=== PATIENT | male | born 1960 | race Caucasian/White ===

== ENCOUNTER 2020-02-25 18:09 | Emergency (ER) | payer MEDICARE, MEDICAID ==
--- NOTE | 2020-02-25 18:19 | EDM.PDOC ---
ED HPI GENERAL MEDICAL PROBLEM - General Chief Complaint: Neurological Problem Stated Complaint: MED VIA NORTH Time Seen by Provider: 02/25/20 18:10 Source of Information: Reports: EMS History Limitations: Reports: Altered Mental Status - History of Present Illness INITIAL COMMENTS - FREE TEXT/NARRATIVE: 59-year-old male who resides in a [facility] has a long history of seizure disorder, tends to have breakthrough seizures at times followed by prolonged periods of postictal states. He was more agitated than usual earlier today, was given some medication and this was followed by what appeared to be a significant "absence seizure" and now is been decreased responsive for the past hour. EMS arrived to pick him up and usually takes him to [place], but he was so unresponsive that they felt he should be taken to the nearest facility. Initially he was not even responding to pain. He now seems to be coming around , appears to be trying to talk and withdraws from pain and localizes to voice. He is unable to give us any history. Onset: Sudden (Over the last 2 hours) Associated Symptoms: Denies: Nausea/Vomiting - Related Data Allergies Allergy/AdvReac Type Severity Reaction Status Date / Time bee venom protein (honey bee) Allergy Anaphylactic Verified 02/25/20 18:12 Shock codeine Allergy Hives Verified 02/25/20 18:12 haloperidol Allergy Seizure Verified 02/25/20 18:12 latex Allergy Swelling Verified 02/25/20 18:12 Home Meds: Home Meds Aspirin 81 mg PO DAILY 02/25/20 [History] Benztropine [Cogentin] 2 mg PO BID 02/25/20 [History] Cholecalciferol (Vitamin D3) [Vitamin D3] 2,000 unit PO BEDTIME 02/25/20 [ History] Clopidogrel [Plavix] 75 mg PO DAILY 02/25/20 [History] Divalproex Sodium [Divalproex Sodium ER] 500 mg PO BID 02/25/20 [History] FLUoxetine [PROzac] 40 mg PO DAILY 02/25/20 [History] Fluticasone/Vilanterol [Breo Ellipta 100-25 MCG Inhalation Kit] 1 each IH DAILY 02/25/20 [History] Furosemide [Lasix] 20 mg PO DAILY 02/25/20 [History] Gabapentin [Neurontin] 100 mg PO TID 02/25/20 [History] Glimepiride 4 mg PO WITHBREAKFAST 02/25/20 [History] Ibuprofen [Ibu] 800 mg PO TID 02/25/20 [History] Insulin Glargine,Hum.Rec.Anlog [Lantus Solostar] 12 units SUBCUT DAILY 02/25/20 [History] Lactulose [Cephulac] 45 gm PO DAILY 02/25/20 [History] Levothyroxine 75 mcg PO ACBREAKFAST 02/25/20 [History] Magnesium 400 mg PO BID 02/25/20 [History] Multivitamin [Multi-Vitamin Daily] 1 tab PO DAILY 02/25/20 [History] OLANZapine [Olanzapine] 10 mg PO TID PRN 02/25/20 [History] Omeprazole 20 mg PO DAILY 02/25/20 [History] Propranolol [Propranolol CR 24 Hr] 120 mg PO DAILY 02/25/20 [History] QUEtiapine [SEROquel] 400 mg PO BEDTIME 02/25/20 [History] atorvaSTATin [Lipitor] 80 mg PO BEDTIME 02/25/20 [History] cloZAPine 300 mg PO DAILY 02/25/20 [History] cloZAPine [Clozapine] 500 mg PO BEDTIME 02/25/20 [History] gemfibroziL [Gemfibrozil] 600 mg PO BID 02/25/20 [History] metFORMIN [Glucophage XR] 500 mg PO BIDMEALS 02/25/20 [History] traZODone 400 mg PO BEDTIME 02/25/20 [History] ED ROS GENERAL - Review of Systems Review Of Systems: See Below Reason Not Obtained: Patient was unresponsive on arrival, unable to obtain review Constitutional: Denies: Weakness ED EXAM, NEURO - Physical Exam Exam: See Below Exam Limited By: Altered Mental Status General Appearance: Lethargic Eye Exam: Bilateral Eye: EOMI Throat/Mouth: Normal Inspection, Other (No evidence of oral injury) Head Exam: Atraumatic Respiratory/Chest: No Respiratory Distress, Lungs Clear Cardiovascular: Regular Rate, Rhythm Neurological: Withdraws to Pain, Other (Also responding to voice, markedly improved after returning from CT scan and starting to attempt to answer questions) Extremities: Normal Inspection Psychiatric: Depressed Mood, Flat Affect Skin Exam: Warm, Dry Course - Vital Signs Last Recorded V/S: Last Vital Signs Temp 96.4 F L 02/25/20 18:30 Pulse 75 02/25/20 19:10 Resp 25 H 02/25/20 19:10 BP 136/76 02/25/20 19:10 Pulse Ox 94 L 02/25/20 19:10 - Orders/Labs/Meds Labs: Laboratory Tests 02/25/20 02/25/20 02/25/20 Range/Units 18:55 18:55 19:32 WBC 7.4 (4.5-11.0) K/uL RBC 4.44 (4.30-5.90) M/uL Hgb 13.3 (12.0-15.0) g/dL Hct 39.8 L (40.0-54.0) % MCV 90 (80-98) fL MCH 30 (27-31) pg MCHC 33 (32-36) % Plt Count 231 (150-400) K/uL Neut % (Auto) 54 (36-66) % Lymph % (Auto) 32 (24-44) % [place] % (Auto) 11 H (2-6) % Eos % (Auto) 3 (2-4) % Baso % (Auto) 1 (0-1) % Sodium 135 L (140-148) mmol/L Potassium 4.5 (3.6-5.2) mmol/L Chloride 97 L (100-108) mmol/L Carbon Dioxide 29 (21-32) mmol/L Anion Gap 13.5 (5.0-14.0) mmol/L BUN 14 (7-18) mg/dL Creatinine 0.9 (0.8-1.3) mg/dL Est Cr Clr Drug Dosing 78.77 mL/min Estimated GFR (MDRD) > 60 (>60) Glucose 75 (74-106) mg/dL Calcium 8.9 (8.5-10.1) mg/dL Magnesium 1.8 (1.8-2.4) mg/dL Total Bilirubin 0.2 (0.2-1.0) mg/dL AST 22 (15-37) U/L ALT 37 (12-78) U/L Alkaline Phosphatase 61 (46-116) U/L Total Protein 6.9 (6.4-8.2) g/dL Albumin 3.6 (3.4-5.0) g/dL Globulin 3.3 (2.3-3.5) g/dL Albumin/Globulin Ratio 1.1 L (1.2-2.2) Valproic Acid 51.6 (50.0-100.0) ug/mL - Re-Assessments/Exams Free Text/Narrative Re-Assessment/Exam: 02/25/20 19:[address] returned normal, CBC and CMP as well as magnesium were obtained. By the time the labs returned which were all normal, the patient was answering questions and cooperating. I did add a valproic acid level which will be available in 2 days. No need for hospitalization, and the [facility] health care provider agreed to take him back so transportation will be arranged. 02/25/20 20:02 Valproic acid level returned 51, therapeutic is between 50 and 100. There is certainly room for increasing the dose. I would suggest discussing this with his neurologist or primary care and consider increasing his daily dose. 02/25/20 22:25 Patient was back to his baseline by discharge. Departure - Departure Time of Disposition: 20:39 Disposition: DC/[facility] to [facility] Condition: Good Clinical Impression: Seizure disorder - Discharge Information Instructions: Seizure, Adult, [id number] Referrals: PCP,None [Primary Care Provider] - Forms: ED Department Discharge Care Plan Goals: Resume regular medications. Call neurologist or primary provider to consider increasing valproic acid as his level is 51, with therapeutic being 50-100. Sepsis Event Note - Focused Exam Vital Signs: Vital Signs Temp Pulse Resp BP Pulse Ox 02/25/20 19:10 75 25 H 136/76 94 L 02/25/20 18:45 75 25 H 126/72 92 L 02/25/20 18:30 96.4 F L 79 25 H 125/66 92 L 02/25/20 18:25 72 121/71 02/25/20 18:12 96.4 F L 79 25 H 125/66 92 L Date Exam was Performed: 02/25/20 Time Exam was Performed: 22:26
--- NOTE | 2020-02-25 18:48 | CRLCT ---
INDICATION: Seizure, unresponsive TECHNIQUE: Head CT without contrast. COMPARISON: None FINDINGS: CSF spaces: Within normal limits for age. Brain parenchyma: There are nonspecific low attenuation white matter changes consistent with chronic microvascular disease. No sign of mass, hemorrhage, or midline shift. Skull base and calvarium: The visualized paranasal sinuses and mastoid air cells demonstrate no acute or significant findings. The visualized orbits are grossly unremarkable. No skull fractures. There is intracranial atherosclerosis. IMPRESSION: 1. No acute findings. 2. Nonspecific white matter disease, typical of chronic microvascular disease. Please note that all CT scans at this facility use dose modulation, iterative reconstruction, and/or weight-based dosing when appropriate to reduce radiation dose to as low as reasonably achievable. Dictated by Martha Ferraro MD @ Feb 25 2020 6:47PM Signed by Dr. Martha Ferraro @ Feb 25 2020 6:47PM
== END 2020-02-25 20:39 ==
LOC: JP.ED 18:09
DX: G40.909 Epilepsy, unspecified, not intractable, without status epilepticus (principal); Z91.030 Bee allergy status; Z91.040 Latex allergy status; Z88.5 Allergy status to narcotic agent; Z88.8 Allergy status to other drugs, medicaments and biological substances; Z79.82 Long term (current) use of aspirin; Z79.02 Long term (current) use of antithrombotics/antiplatelets; Z79.899 Other long term (current) drug therapy
CPT/HCPCS: 36415; 70450; 80053; 80164; 83735; 85025; 99284; 99285-25

== ENCOUNTER 2020-03-07 02:52 | Emergency (ER) | payer MEDICARE, MEDICAID ==
--- NOTE | 2020-03-07 03:06 | EDM.PDOC ---
ED HPI GENERAL MEDICAL PROBLEM - General Chief Complaint: General Stated Complaint: MEDICAL VIA NORTH Time Seen by Provider: 03/07/20 02:55 Source of Information: Reports: Patient, EMS History Limitations: Reports: Other (Mild to moderate postictal state, some confusion) - History of Present Illness INITIAL COMMENTS - FREE TEXT/NARRATIVE: 59-year-old male with a known chronic seizure disorder, who was just evaluated a week and a half ago with a seizure and he has Depakote was increased. Tonight he had another seizure and wanted to be evaluated. His postictal state was not as prolonged tonight, but he is unaware of having his medication level rechecked since increasing his dose. He does not have any damage to his tongue or incontinence. His only complaint is that he has been having muscle cramps in his lower extremities over the past 2 weeks. Onset: Sudden Duration: Hour(s): (About an hour ago) Associated Symptoms: Reports: Confusion - Related Data Allergies Allergy/AdvReac Type Severity Reaction Status Date / Time bee venom protein (honey bee) Allergy Anaphylactic Verified 03/07/20 03:26 Shock codeine Allergy Hives Verified 03/07/20 03:26 haloperidol Allergy Seizure Verified 03/07/20 03:26 latex Allergy Swelling Verified 03/07/20 03:26 Home Meds: Home Meds Aspirin 81 mg PO DAILY 02/25/20 [History] Benztropine [Cogentin] 2 mg PO BID 02/25/20 [History] Cholecalciferol (Vitamin D3) [Vitamin D3] 2,000 unit PO BEDTIME 02/25/20 [ History] Clopidogrel [Plavix] 75 mg PO DAILY 02/25/20 [History] Divalproex Sodium [Divalproex Sodium ER] 500 mg PO BID 02/25/20 [History] FLUoxetine [PROzac] 40 mg PO DAILY 02/25/20 [History] Fluticasone/Vilanterol [Breo Ellipta 100-25 MCG Inhalation Kit] 1 each IH DAILY 02/25/20 [History] Furosemide [Lasix] 20 mg PO DAILY 02/25/20 [History] Gabapentin [Neurontin] 100 mg PO TID 02/25/20 [History] Glimepiride 4 mg PO WITHBREAKFAST 02/25/20 [History] Ibuprofen [Ibu] 800 mg PO TID 02/25/20 [History] Insulin Glargine,Hum.Rec.Anlog [Lantus Solostar] 12 units SUBCUT DAILY 02/25/20 [History] Lactulose [Cephulac] 45 gm PO DAILY 02/25/20 [History] Levothyroxine 75 mcg PO ACBREAKFAST 02/25/20 [History] Magnesium 400 mg PO BID 02/25/20 [History] Multivitamin [Multi-Vitamin Daily] 1 tab PO DAILY 02/25/20 [History] OLANZapine [Olanzapine] 10 mg PO TID PRN 02/25/20 [History] Omeprazole 20 mg PO DAILY 02/25/20 [History] Propranolol [Propranolol CR 24 Hr] 120 mg PO DAILY 02/25/20 [History] QUEtiapine [SEROquel] 400 mg PO BEDTIME 02/25/20 [History] atorvaSTATin [Lipitor] 80 mg PO BEDTIME 02/25/20 [History] cloZAPine 300 mg PO DAILY 02/25/20 [History] cloZAPine [Clozapine] 500 mg PO BEDTIME 02/25/20 [History] gemfibroziL [Gemfibrozil] 600 mg PO BID 02/25/20 [History] metFORMIN [Glucophage XR] 500 mg PO BIDMEALS 02/25/20 [History] traZODone 400 mg PO BEDTIME 02/25/20 [History] Divalproex Sodium 250 mg PO BID 03/07/20 [History] Past Medical History Respiratory History: Reports: COPD Gastrointestinal History: Reports: Other (See Below) Other Gastrointestinal History: hepatic encephalopathy, alcohol dependence in remission Musculoskeletal History: Reports: Other (See Below) Other Musculoskeletal History: multiple sclerosis, chronic pain sydrome Neurological History: Reports: Seizure Psychiatric History: Reports: Anxiety, Depression, Psychosis, Schizophrenia, Other (See Below) Other Psychiatric History: schizoaffective disorder Endocrine/Metabolic History: Reports: Hypothyroidism ED ROS GENERAL - Review of Systems Review Of Systems: See Below Constitutional: Denies: Fever, Chills HEENT: Denies: Vision Change Respiratory: Denies: Shortness of Breath Cardiovascular: Denies: Chest Pain GI/Abdominal: Denies: Abdominal Pain, Nausea, Vomiting Musculoskeletal: Reports: Muscle Pain (Cramps in his lower extremities) Skin: Reports: No Symptoms Neurological: Denies: Headache ED EXAM, GENERAL - Physical Exam Exam: See Below Exam Limited By: No Limitations General Appearance: Alert, No Apparent Distress Eye Exam: Bilateral Eye: EOMI, PERRL Throat/Mouth: Normal Inspection Head: Atraumatic Respiratory/Chest: No Respiratory Distress, Lungs Clear Cardiovascular: Regular Rate, Rhythm GI/Abdominal: Soft, Non-Tender Extremities: Normal Inspection. No: Pedal Edema Neurological: Alert, Other (Patient has slow responses to questioning but it is accurate and he is oriented) Psychiatric: Flat Affect Skin Exam: Warm, Dry Course - Vital Signs Last Recorded V/S: Last Vital Signs Temp 96.5 F L 03/07/20 03:18 Pulse 72 03/07/20 03:52 Resp 18 03/07/20 03:18 BP 144/57 H 03/07/20 03:52 Pulse Ox 92 L 03/07/20 03:18 - Orders/Labs/Meds Labs: Laboratory Tests 03/07/20 Range/Units 03:10 Sodium 138 L (140-148) mmol/L Potassium 4.3 (3.6-5.2) mmol/L Chloride 100 (100-108) mmol/L Carbon Dioxide 32 (21-32) mmol/L Anion Gap 10.3 (5.0-14.0) mmol/L BUN 6 L D (7-18) mg/dL Creatinine 0.8 (0.8-1.3) mg/dL Est Cr Clr Drug Dosing TNP Estimated GFR (MDRD) > 60 (>60) Glucose 67 L (74-106) mg/dL Calcium 8.7 (8.5-10.1) mg/dL Valproic Acid 52.3 (50.0-100.0) ug/mL Meds: Medications Discontinued Medications Generic Name Dose Route Start Last Admin Trade Name Freq PRN Reason Stop Dose Admin Sodium Chloride 500 mls @ 1,000 mls/hr 03/07/20 03:30 03/07/20 03:25 Normal Saline IV 1,000 mls/hr ASDIRECTED [facility] Administration - Re-Assessments/Exams Free Text/Narrative Re-Assessment/Exam: 03/07/20 03:09 Patient will be given a 500 cc bolus of normal saline, and his valproic acid and BMP will be checked. 03/07/20 03:33 Patient remained stable, valproic acid is now 52.3. There is more room for increasing the dose of his medication. BMP is normal. 03/07/20 03:35 The increase on his valproic acid was just 2 days ago so he should continue with the increased dose. Departure - Departure Time of Disposition: 04:22 Disposition: Home, Self-Care 01 Clinical Impression: Seizure disorder - Discharge Information Instructions: Valproic Acid, Divalproex Sodium delayed release capsules, Seizure, Adult, [id number] Referrals: PCP,None [Primary Care Provider] - Forms: ED Department Discharge Care Plan Goals: Continue with increased valproic acid doses as recently changed 2 days ago. Consider monitoring after a seizure and if he returns to baseline no further work-up is necessary unless seizures are persistent after the increased dosage over the course of 1 to 2 weeks. Sepsis Event Note - Focused Exam Date Exam was Performed: 03/07/20 Time Exam was Performed: 17:29
[2020-03-07] MEDS ORDERED: Sodium Chloride 0.9% 500 ML IV SCH ×2 (03:15→03:30)
== END 2020-03-07 05:01 | disposition home or self-care (01) ==
LOC: JP.ED 02:52
DX: G40.909 Epilepsy, unspecified, not intractable, without status epilepticus (principal); J44.9 Chronic obstructive pulmonary disease, unspecified; G35 Multiple sclerosis; F41.9 Anxiety disorder, unspecified; F32.9 Major depressive disorder, single episode, unspecified; E03.9 Hypothyroidism, unspecified; Z91.030 Bee allergy status; Z88.5 Allergy status to narcotic agent; Z88.8 Allergy status to other drugs, medicaments and biological substances; Z91.040 Latex allergy status; Z79.82 Long term (current) use of aspirin; Z79.02 Long term (current) use of antithrombotics/antiplatelets; Z79.4 Long term (current) use of insulin; Z79.899 Other long term (current) drug therapy
CPT/HCPCS: 36415; 80048; 80164; 96360; 99283; 99284-25; J7030

== ENCOUNTER 2021-02-09 19:36 | Emergency (ER) | payer MEDICARE, MEDICAID ==
--- NOTE | 2021-02-09 19:45 | EDM.PDOC ---
ED HPI GENERAL MEDICAL PROBLEM - General Chief Complaint: Head Injury Stated Complaint: MEDICAL VIA NOR[facility] Time Seen by Provider: 02/09/21 19:40 Source of Information: Reports: EMS, Old Records. Denies: Patient History Limitations: Reports: Altered Mental Status - History of Present Illness INITIAL COMMENTS - FREE TEXT/NARRATIVE: 60 yo male arrives via EMS after Dereck was sitting on a toilet attempting a BM when he passed out and fell off the toilet. There were no complaints leading up to this fall. EMS transported with stable vitals, but limited alertness. No head bumps noted. His only anticoagulant is ASA. Lives at an assisted living facility. Onset: Today, Sudden Onset Date: 02/09/21 Duration: Minutes: Location: Reports: Head (?) Quality: Reports: Other (unclear) Severity: Moderate Improves with: Reports: None Worsens with: Reports: None Context: Reports: Other (See HPI) Associated Symptoms: Reports: Syncope, Other (altered LOC) Treatments STUDENT SUCCESS COACH: Reports: Other (see below) (none) Left Head Pain Score (Numeric/FACES): 3 - Related Data Allergies Allergy/AdvReac Type Severity Reaction Status Date / Time bee venom protein (honey bee) Allergy Anaphylactic Verified 03/07/20 03:26 Shock codeine Allergy Hives Verified 03/07/20 03:26 haloperidol Allergy Seizure Verified 03/07/20 03:26 latex Allergy Swelling Verified 03/07/20 03:26 Home Meds: Home Meds Aspirin 81 mg PO DAILY 02/25/20 [History] Benztropine [Cogentin] 2 mg PO BID 02/25/20 [History] Cholecalciferol (Vitamin D3) [Vitamin D3] 2,000 unit PO BEDTIME 02/25/20 [History] Clopidogrel [Plavix] 75 mg PO DAILY 02/25/20 [History] Divalproex Sodium [Divalproex Sodium ER] 500 mg PO BID 02/25/20 [History] FLUoxetine [PROzac] 40 mg PO DAILY 02/25/20 [History] Fluticasone/Vilanterol [Breo Ellipta 100-25 MCG Inhalation Kit] 1 each IH DAILY 02/25/20 [History] Furosemide [Lasix] 20 mg PO DAILY 02/25/20 [History] Gabapentin [Neurontin] 100 mg PO TID 02/25/20 [History] Glimepiride 4 mg PO WITHBREAKFAST 02/25/20 [History] Ibuprofen [Ibu] 800 mg PO TID 02/25/20 [History] Insulin Glargine,Hum.Rec.Anlog [Lantus Solostar] 12 units SUBCUT DAILY 02/25/20 [History] Lactulose [Cephulac] 45 gm PO DAILY 02/25/20 [History] Levothyroxine 75 mcg PO ACBREAKFAST 02/25/20 [History] Magnesium 400 mg PO BID 02/25/20 [History] Multivitamin [Multi-Vitamin Daily] 1 tab PO DAILY 02/25/20 [History] OLANZapine [Olanzapine] 10 mg PO TID PRN 02/25/20 [History] Omeprazole 20 mg PO DAILY 02/25/20 [History] Propranolol [Propranolol CR 24 Hr] 120 mg PO DAILY 02/25/20 [History] QUEtiapine [SEROquel] 400 mg PO BEDTIME 02/25/20 [History] atorvaSTATin [Lipitor] 80 mg PO BEDTIME 02/25/20 [History] cloZAPine 300 mg PO DAILY 02/25/20 [History] cloZAPine [Clozapine] 500 mg PO BEDTIME 02/25/20 [History] gemfibroziL [Gemfibrozil] 600 mg PO BID 02/25/20 [History] metFORMIN [Glucophage XR] 500 mg PO BIDMEALS 02/25/20 [History] traZODone 400 mg PO BEDTIME 02/25/20 [History] Divalproex Sodium 250 mg PO BID 03/07/20 [History] Past Medical History Respiratory History: Reports: COPD Gastrointestinal History: Reports: Other (See Below) Other Gastrointestinal History: hepatic encephalopathy, alcohol dependence in remission Musculoskeletal History: Reports: Other (See Below) Other Musculoskeletal History: multiple sclerosis, chronic pain sydrome Neurological History: Reports: Seizure Psychiatric History: Reports: Anxiety, Depression, Psychosis, Schizophrenia, Other (See Below) Other Psychiatric History: schizoaffective disorder Endocrine/Metabolic History: Reports: Hypothyroidism - Infectious Disease History Infectious Disease History: Reports: Chicken Pox Social & Family History - Family History Family Medical History: No Pertinent Family History - Caffeine Use Caffeine Use: Reports: Coffee ED ROS GENERAL - Review of Systems Review Of Systems: Unable To Obtain (due to decreased LOC) Reason Not Obtained: decreased LOC Constitutional: Reports: Other (altered LOC) ED EXAM, HEAD INJURY - Physical Exam Exam: See Below Exam Limited By: No Limitations General Appearance: WD/WN, Obtunded Head: Atraumatic, Normocephalic Eyes: Bilateral Eye: Normal Inspection, PERRL Ears: Normal External Exam, Normal Canal, Normal TMs Nose: Normal Inspection, No Blood Throat/Mouth: Normal Lips, Normal Oropharynx, No Airway Compromise, Other (dry tongue) Neck: Normal Inspection Respiratory: No Respiratory Distress, Lungs Clear, Normal Breath Sounds, No Accessory Muscle Use Cardiovascular: Regular Rate, Rhythm, No Edema GI/Abdominal Exam: Soft, Non-Tender, No Distention, Abnormal Bowel Sounds (incr eased) Extremities: Normal Inspection, Normal Range of Motion, No Pedal Edema Neurologic: Other (all extrems flaccid) Skin: Normal Color, Warm/Dry - Luis Coma Score Best Eye Response (Luis): (1) No Response Best Verbal Response (Luis): (1) No Verbal Response Best Motor Response ([place]): (1) No Motor Response [place] Total: 3 ( a few minutes later is interacting with nursing. ) Course - Vital Signs Last Recorded V/S: Last Vital Signs Temp 36.6 C 02/09/21 19:38 Pulse 91 02/09/21 19:38 Resp 18 02/09/21 19:38 BP 114/64 02/09/21 19:38 Pulse Ox 91 L 02/09/21 19:38 - Orders/Labs/Meds Orders: Active Orders 24 hr Category Date Time Status Cardiac Monitoring [RC] .As Directed Care 02/09/21 19:42 Active Head wo Cont [CT] Stat Exams 02/09/21 19:44 Stop Req Labs: Laboratory Tests 02/09/21 02/09/21 02/09/21 Range/Units 20:09 20:16 20:16 WBC 9.5 (4.5-11.0) K/uL RBC 4.96 (4.30-5.90) M/uL Hgb 11.5 L (12.0-15.0) g/dL Hct 37.2 L (40.0-54.0) % MCV 75 L (80-98) fL MCH 23 L (27-31) pg MCHC 31 L (32-36) % Plt Count 306 (150-400) K/uL Sodium 146 (140-148) mmol/L Potassium 4.5 (3.6-5.2) mmol/L Chloride 104 (100-108) mmol/L Carbon Dioxide 27 (21-32) mmol/L Anion Gap 15.4 H (5.0-14.0) mmol/L BUN 8 (7-18) mg/dL Creatinine 0.7 L (0.8-1.3) mg/dL Est Cr Clr Drug Dosing 121.63 mL/min Estimated GFR (MDRD) > 60 (>60) Glucose 67 L (74-106) mg/dL Calcium 10.5 H D (8.5-10.1) mg/dL Magnesium 2.0 (1.8-2.4) mg/dL Ammonia (11-32) umol/L Troponin I < 0.017 (0.000-0.056) ng/mL Urine Color Yellow (YELLOW) Urine Appearance Clear (CLEAR) Urine pH 6.5 (5.0-8.0) Ur Specific [place] 1.010 (1.008-1.030) Urine Protein Negative (NEGATIVE) mg/dL Urine Glucose (UA) Negative (NEGATIVE) mg/dL Urine Ketones Negative (NEGATIVE) mg/dL Urine Occult Blood Negative (NEGATIVE) Urine Nitrite Negative (NEGATIVE) Urine Bilirubin Negative (NEGATIVE) Urine Urobilinogen 0.2 (0.2-1.0) EU/dL Ur Leukocyte Esterase Negative (NEGATIVE) Urine RBC Not seen (0-5) Urine WBC 0-5 (0-5) Ur Epithelial Cells Rare Amorphous Sediment Rare Urine Bacteria Rare Urine Mucus Not seen 02/09/21 Range/Units 20:16 WBC (4.5-11.0) K/uL RBC (4.30-5.90) M/uL Hgb (12.0-15.0) g/dL Hct (40.0-54.0) % MCV (80-98) fL MCH (27-31) pg MCHC (32-36) % Plt Count (150-400) K/uL Sodium (140-148) mmol/L Potassium (3.6-5.2) mmol/L Chloride (100-108) mmol/L Carbon Dioxide (21-32) mmol/L Anion Gap (5.0-14.0) mmol/L BUN (7-18) mg/dL Creatinine (0.8-1.3) mg/dL Est Cr Clr Drug Dosing mL/min Estimated GFR (MDRD) (>60) Glucose (74-106) mg/dL Calcium (8.5-10.1) mg/dL Magnesium (1.8-2.4) mg/dL Ammonia 16 (11-32) umol/L Troponin I (0.000-0.056) ng/mL Urine Color (YELLOW) Urine Appearance (CLEAR) Urine pH (5.0-8.0) Ur Specific [place] (1.008-1.030) Urine Protein (NEGATIVE) mg/dL Urine Glucose (UA) (NEGATIVE) mg/dL Urine Ketones (NEGATIVE) mg/dL Urine Occult Blood (NEGATIVE) Urine Nitrite (NEGATIVE) Urine Bilirubin (NEGATIVE) Urine Urobilinogen (0.2-1.0) EU/dL Ur Leukocyte Esterase (NEGATIVE) Urine RBC (0-5) Urine WBC (0-5) Ur Epithelial Cells Amorphous Sediment Urine Bacteria Urine Mucus - Radiology Interpretation CT Results Date: 02/09/21 - Re-Assessments/Exams Free Text/Narrative Re-Assessment/Exam: 02/09/21 20:48 Was given applejuice and a snack here in the ER, if more alert now. Departure - Departure Time of Disposition: 21:15 Disposition: Home, Self-Care 01 Condition: Fair Clinical Impression: Hypoglycemia - Discharge Information *PRESCRIPTION DRUG MONITORING PROGRAM REVIEWED*: Not Applicable *COPY OF PRESCRIPTION DRUG MONITORING REPORT IN PATIENT [id number]: Not Applicable Referrals: PCP,None [Primary Care Provider] - Forms: ED Department Discharge Additional Instructions: Watch blood sugars more closely. Contact primary care provider on Thursday morning regarding today's low blood sugar episode(67). Return as needed. Sepsis Event Note (ED) - Evaluation Sepsis Screening Result: No Definite Risk - Focused Exam Vital Signs: Vital Signs Temp Pulse Resp BP Pulse Ox 02/09/21 19:38 36.6 C 91 18 114/64 91 L - My Orders Last 24 Hours: My Active Orders 02/09/21 19:42 Cardiac Monitoring [RC] .As Directed 02/09/21 19:44 Head wo Cont [CT] Stat - Assessment/Plan Last 24 Hours: My Active Orders 02/09/21 19:42 Cardiac Monitoring [RC] .As Directed 02/09/21 19:44 Head wo Cont [CT] Stat
== END 2021-02-09 22:04 | disposition home or self-care (01) ==
LOC: JP.ED 19:36
DX: E16.2 Hypoglycemia, unspecified (principal); J44.9 Chronic obstructive pulmonary disease, unspecified; G35 Multiple sclerosis; E03.9 Hypothyroidism, unspecified; Z91.030 Bee allergy status; Z88.5 Allergy status to narcotic agent; Z88.8 Allergy status to other drugs, medicaments and biological substances; Z91.040 Latex allergy status; Z79.82 Long term (current) use of aspirin; Z79.02 Long term (current) use of antithrombotics/antiplatelets; Z79.4 Long term (current) use of insulin; Z79.899 Other long term (current) drug therapy
CPT/HCPCS: 36415; 80048; 81001; 82140; 82947; 83735; 84484; 85027; 99285-25

== ENCOUNTER 2021-04-05 03:29 | Emergency (ER) | payer MEDICARE, MEDICAID ==
[2021-04-05] MEDS ORDERED: Sodium Chloride 0.9% 10 ML Syringe FLUSH PRN (04:13)
--- NOTE | 2021-04-05 04:20 | EDM.PDOC ---
ED HPI GENERAL MEDICAL PROBLEM - General Chief Complaint: Diabetic Complaint Stated Complaint: LOW BLOOD SUGAR Time Seen by Provider: 04/05/21 04:12 Source of Information: Reports: EMS History Limitations: Reports: Altered Mental Status - History of Present Illness INITIAL COMMENTS - FREE TEXT/NARRATIVE: Dereck is a 60-year-old male presenting to the ED from [facility] in [place], [place] for evaluation of altered mental status. Patient was assessed at 1 AM by the [facility] staff who found him unresponsive. They did a blood glucose and found he was at 60 mg/dL. They in turn called EMS who found him to have a glucose of 50 mg/dL. They were unable to establish an IV but did give the patient 1 mg of glucagon IM. The patient is on a large amount of nighttime medications that would make him quite somnolent including gabapentin, Keppra, and Seroquel to name a few. Nursing staff informs me that when the patient has presented at nighttime he typically is very somnolent because of these medications. It is unclear why nursing staff decided to do a 1 AM check on the patient in [facility]. The patient does have a history of diabetes, schizoaffective schizophrenia, seizure disorder, multiple sclerosis, alcohol dependence, and hypertension. I did receive a phone call from Gwyn, the nurse conference center manager from [facility] who stated that the aids 1 minute 1 AM to toilet the patient and found him unresponsive. They did check a blood sugar which was reported above and because the patient would not respond they called EMS.'s unclear what was responsible for the significant delay between toileting him at 1 AM and him presenting to the ER at 4 AM. The patient was recently taken off BuSpar and lorazepam and started on clonazepam which may be contributing to his increased somnolence. - Related Data Allergies Allergy/AdvReac Type Severity Reaction Status Date / Time bee venom protein (honey bee) Allergy Anaphylactic Verified 04/05/21 03:35 Shock codeine Allergy Hives Verified 04/05/21 03:35 haloperidol Allergy Seizure Verified 04/05/21 03:35 latex Allergy Swelling Verified 04/05/21 03:35 Home Meds: Home Meds Cholecalciferol (Vitamin D3) [Vitamin D3] 2,000 unit PO BEDTIME 02/25/20 [History] FLUoxetine [PROzac] 80 mg PO DAILY 02/25/20 [History] Fluticasone/Vilanterol [Breo Ellipta 100-25 MCG Inhalation Kit] 1 each IH DAILY 02/25/20 [History] Gabapentin [Neurontin] 100 mg PO TID 02/25/20 [History] Glimepiride 4 mg PO WITHBREAKFAST 02/25/20 [History] Lactulose [Cephulac] 45 gm PO TID 02/25/20 [History] Levothyroxine 75 mcg PO ACBREAKFAST 02/25/20 [History] Magnesium 400 mg PO BID 02/25/20 [History] Multivitamin [Multi-Vitamin Daily] 1 tab PO DAILY 02/25/20 [History] OLANZapine [Olanzapine] 10 mg PO TID 02/25/20 [History] Omeprazole 20 mg PO DAILY 02/25/20 [History] QUEtiapine [SEROquel] 400 mg PO BEDTIME 02/25/20 [History] atorvaSTATin [Lipitor] 80 mg PO BEDTIME 02/25/20 [History] cloZAPine 300 mg PO DAILY 02/25/20 [History] cloZAPine [Clozapine] 500 mg PO BEDTIME 02/25/20 [History] gemfibroziL [Gemfibrozil] 600 mg PO BID 02/25/20 [History] metFORMIN [Glucophage XR] 500 mg PO BIDMEALS 02/25/20 [History] traZODone 100 mg PO BEDTIME 02/25/20 [History] Aspirin 1 tab PO DAILY 02/09/21 [History] Benztropine [Cogentin] 1 tab PO BID 02/09/21 [History] Finasteride 1 tab PO DAILY 02/09/21 [History] Propranolol [Inderal] 1 tab PO DAILY 02/09/21 [History] Tolterodine [Detrol] 1 tab PO BEDTIME 02/09/21 [History] levETIRAcetam [Levetiracetam] 1 tab PO BID 02/09/21 [History] clonazePAM [Clonazepam] 1 mg PO BID 04/05/21 [History] Past Medical History HEENT History: Reports: Impaired Vision Respiratory History: Reports: COPD Gastrointestinal History: Reports: Other (See Below) Other Gastrointestinal History: hepatic encephalopathy, alcohol dependence in remission Musculoskeletal History: Reports: Other (See Below) Other Musculoskeletal History: multiple sclerosis, chronic pain sydrome Neurological History: Reports: Seizure Psychiatric History: Reports: Anxiety, Depression, Psychosis, Schizophrenia, Other (See Below) Other Psychiatric History: schizoaffective disorder Endocrine/Metabolic History: Reports: Diabetes, Type I, Hypothyroidism - Infectious Disease History Infectious Disease History: Reports: Chicken Pox Social & Family History - Family History Family Medical History: No Pertinent Family History - Caffeine Use Caffeine Use: Reports: Coffee ED ROS GENERAL - Review of Systems Review Of Systems: Unable To Obtain Reason Not Obtained: Patient is very somnolent and not answering questions. ED EXAM GENERAL NO PERIP PULSE - Physical Exam Exam: See Below Exam Limited By: Altered Mental Status General Appearance: Obtunded Eye Exam: Bilateral Eye: PERRL Throat/Mouth: Normal Inspection, Normal Oropharynx Head: Atraumatic, Normocephalic Respiratory/Chest: No Respiratory Distress, Lungs Clear, Normal Breath Sounds Cardiovascular: Normal Peripheral Pulses, Regular Rate, Rhythm, No Murmur GI/Abdominal: Normal Bowel Sounds, Soft, Non-Tender Extremities: Normal Inspection Neurological: Unresponsive Course - Vital Signs Last Recorded V/S: Last Vital Signs Temp 36.2 C 04/05/21 04:08 Pulse 70 04/05/21 05:10 Resp 19 04/05/21 05:10 BP 123/69 04/05/21 05:10 Pulse Ox 94 L 04/05/21 05:10 - Orders/Labs/Meds Orders: Active Orders 24 hr Category Date Time Status Sodium Chloride 0.9% [Saline Flush] Med 04/05/21 04:13 Active 10 ml FLUSH ASDIRECTED PRN Saline Lock Insert [OM.PC] Routine Oth 04/05/21 04:13 Ordered Medication Orders Sodium Chloride (Sodium Chloride 0.9% 10 Ml Syringe) 10 ml FLUSH ASDIRECTED PRN PRN Reason: Keep Vein Open Last Admin: 04/05/21 04:31 Dose: 10 ml Documented by: JUDI Labs: Laboratory Tests 04/05/21 04/05/21 04/05/21 Range/Units 03:45 03:45 03:45 WBC 6.5 (4.5-11.0) K/uL RBC 4.73 (4.30-5.90) M/uL Hgb 12.1 (12.0-15.0) g/dL Hct 37.8 L (40.0-54.0) % MCV 80 (80-98) fL MCH 26 L (27-31) pg MCHC 32 (32-36) % Plt Count 297 (150-400) K/uL Neut % (Auto) 59.6 (36-66) % Lymph % (Auto) 28.8 (24-44) % [place] % (Auto) 7.7 H (2-6) % Eos % (Auto) 3.1 (2-4) % Baso % (Auto) 0.8 (0-1) % Sodium 142 (140-148) mmol/L Potassium 4.1 (3.6-5.2) mmol/L Chloride 101 (100-108) mmol/L Carbon Dioxide 27 (21-32) mmol/L Anion Gap 13.6 (5.0-14.0) mmol/L BUN 10 (7-18) mg/dL Creatinine 0.8 (0.8-1.3) mg/dL Est Cr Clr Drug Dosing 103.28 mL/min Estimated GFR (MDRD) > 60 (>60) Glucose 151 H (74-106) mg/dL Lactic Acid 1.0 (0.4-2.0) mmol/L Calcium 9.5 (8.5-10.1) mg/dL Total Bilirubin 0.2 (0.2-1.0) mg/dL AST 40 H D (15-37) U/L ALT 43 (12-78) U/L Alkaline Phosphatase 115 D (46-116) U/L Ammonia (11-32) umol/L Total Protein 8.0 (6.4-8.2) g/dL Albumin 3.5 (3.4-5.0) g/dL Globulin 4.5 H (2.3-3.5) g/dL Albumin/Globulin Ratio 0.8 L (1.2-2.2) Urine Color (YELLOW) Urine Appearance (CLEAR) Urine pH (5.0-8.0) Ur Specific [place] (1.008-1.030) Urine Protein (NEGATIVE) mg/dL Urine Glucose (UA) (NEGATIVE) mg/dL Urine Ketones (NEGATIVE) mg/dL Urine Occult Blood (NEGATIVE) Urine Nitrite (NEGATIVE) Urine Bilirubin (NEGATIVE) Urine Urobilinogen (0.2-1.0) EU/dL Ur Leukocyte Esterase (NEGATIVE) Urine RBC (0-5) Urine WBC (0-5) Ur Epithelial Cells Amorphous Sediment Urine Bacteria Urine Mucus Ethyl Alcohol mg/dL 04/05/21 04/05/21 04/05/21 Range/Units 03:45 04:13 04:50 WBC (4.5-11.0) K/uL RBC (4.30-5.90) M/uL Hgb (12.0-15.0) g/dL Hct (40.0-54.0) % MCV (80-98) fL MCH (27-31) pg MCHC (32-36) % Plt Count (150-400) K/uL Neut % (Auto) (36-66) % Lymph % (Auto) (24-44) % [place] % (Auto) (2-6) % Eos % (Auto) (2-4) % Baso % (Auto) (0-1) % Sodium (140-148) mmol/L Potassium (3.6-5.2) mmol/L Chloride (100-108) mmol/L Carbon Dioxide (21-32) mmol/L Anion Gap (5.0-14.0) mmol/L BUN (7-18) mg/dL Creatinine (0.8-1.3) mg/dL Est Cr Clr Drug Dosing mL/min Estimated GFR (MDRD) (>60) Glucose (74-106) mg/dL Lactic Acid (0.4-2.0) mmol/L Calcium (8.5-10.1) mg/dL Total Bilirubin (0.2-1.0) mg/dL AST (15-37) U/L ALT (12-78) U/L Alkaline Phosphatase (46-116) U/L Ammonia < 11 L (11-32) umol/L Total Protein (6.4-8.2) g/dL Albumin (3.4-5.0) g/dL Globulin (2.3-3.5) g/dL Albumin/Globulin Ratio (1.2-2.2) Urine Color Yellow (YELLOW) Urine Appearance Clear (CLEAR) Urine pH 6.0 (5.0-8.0) Ur Specific [place] 1.015 (1.008-1.030) Urine Protein Negative (NEGATIVE) mg/dL Urine Glucose (UA) Negative (NEGATIVE) mg/dL Urine Ketones Negative (NEGATIVE) mg/dL Urine Occult Blood Negative (NEGATIVE) Urine Nitrite Negative (NEGATIVE) Urine Bilirubin Negative (NEGATIVE) Urine Urobilinogen 0.2 (0.2-1.0) EU/dL Ur Leukocyte Esterase Negative (NEGATIVE) Urine RBC 0-5 (0-5) Urine WBC 0-5 (0-5) Ur Epithelial Cells Not seen Amorphous Sediment Not seen Urine Bacteria Few Urine Mucus Not seen Ethyl Alcohol < 3 mg/dL Meds: Medications Generic Name Dose Route Start Last Admin Trade Name Freq PRN Reason Stop Dose Admin Sodium Chloride 10 ml 04/05/21 04:13 04/05/21 04:31 Sodium Chloride 0.9% 10 Ml Syringe FLUSH 10 ml ASDIRECTED PRN Administration Keep Vein Open - Re-Assessments/Exams Free Text/Narrative Re-Assessment/Exam: 04/05/21 05:09 the patient arrived to the ED with a soiled diaper and over 1400 cc of urine in his bladder. He is significantly somnolent to the point of almost being obtunded with sonorous respirations. He does respond when stim ulated. Blood glucose done at the bedside was 151. Additional labs were obtained including a CBC, comprehensive metabolic panel, ammonia, lactic acid, ethanol, and urinalysis. His CBC and comprehensive metabolic panel are unremarkable except for a glucose of 151. His lactic acid is normal at 1.0. His ethanol level is less than 3. Ammonia level is also in normal range. Urinalysis is unremarkable. Other than the patient's medications, I do not see a reason for him to be hypersomnolent. I do think the patient could go back to the assisted living this morning. Departure - Departure Time of Disposition: 05:37 Disposition: Home, Self-Care 01 Clinical Impression: Hypersomnolence disorder, acute, moderate, Schizo-affective schizophrenia, Multiple sclerosis, Panlobular emphysema, Diabetes mellitus, Hypoglycemic episode in patient with diabetes mellitus - Discharge Information Instructions: Preventing Hypoglycemia Referrals: PCP,Unknown [Primary Care Provider] - Forms: ED Department Discharge Care Plan Goals: You are on several potent neuroleptic medications that will cause you to be quite somnolent after taking your nighttime doses. Tonight you additionally had an episode of low blood sugar that was treated successfully by EMS before arrival to the ED. Your sugars have been running fine since. You may want to visit with your primary care provider who is managing your diabetes medications to see if you need to have an adjustment on your nighttime dose so that you do not continually have nighttime low glucose levels. Sepsis Event Note (ED) - Evaluation Sepsis Screening Result: No Definite Risk - Focused Exam Vital Signs: Vital Signs Temp Pulse Resp BP Pulse Ox 04/05/21 05:10 70 19 123/69 94 L 04/05/21 04:08 36.2 C 70 12 115/63 92 L 04/05/21 04:00 36.2 C 70 12 115/63 92 L - Problem List & Annotations (1) Multiple sclerosis SNOMED Code(s): 90981192 Code(s): G35 - MULTIPLE SCLEROSIS Status: Chronic Priority: Medium Current Visit: Yes (2) Schizo-affective schizophrenia SNOMED Code(s): 706876813 Code(s): F25.9 - SCHIZOAFFECTIVE DISORDER, UNSPECIFIED Status: Chronic Priority: Medium Current Visit: Yes (3) Panlobular emphysema SNOMED Code(s): 7087601 Code(s): J43.1 - PANLOBULAR EMPHYSEMA Status: Chronic Priority: Medium Current Visit: Yes (4) Diabetes mellitus SNOMED Code(s): 13887247 Code(s): E11.9 - TYPE 2 DIABETES MELLITUS WITHOUT COMPLICATIONS Status: Chronic Priority: High Current Visit: Yes (5) Hypersomnolence disorder, acute, moderate SNOMED Code(s): 05041168 Code(s): G47.10 - HYPERSOMNIA, UNSPECIFIED Status: Acute Priority: High Current Visit: Yes (6) Hypoglycemic episode in patient with diabetes mellitus SNOMED Code(s): 977409052, 864305894 Code(s): E11.649 - TYPE 2 DIABETES MELLITUS WITH HYPOGLYCEMIA WITHOUT COMA Status: Acute Priority: High Current Visit: Yes - Problem List Review Problem List Initiated/Reviewed/Updated: Yes - My Orders Last 24 Hours: My Active Orders 04/05/21 04:13 Sodium Chloride 0.9% [Saline Flush] 10 ml FLUSH ASDIRECTED PRN Saline Lock Insert [OM.PC] Routine - Assessment/Plan Last 24 Hours: My Active Orders 04/05/21 04:13 Sodium Chloride 0.9% [Saline Flush] 10 ml FLUSH ASDIRECTED PRN Saline Lock Insert [OM.PC] Routine
== END 2021-04-05 06:20 | disposition home or self-care (01) ==
LOC: JP.ED 03:29
DX: E11.649 Type 2 diabetes mellitus with hypoglycemia without coma (principal); J43.1 Panlobular emphysema; G35 Multiple sclerosis; F25.9 Schizoaffective disorder, unspecified; G47.10 Hypersomnia, unspecified; E03.9 Hypothyroidism, unspecified; Z88.5 Allergy status to narcotic agent; Z91.030 Bee allergy status; Z91.040 Latex allergy status
CPT/HCPCS: 36415; 80053; 80307; 81001; 82140; 83605; 85025; 99285